=== PATIENT | male | born 1970 | race Caucasian/White ===

== ENCOUNTER 2018-08-20 12:20 | Outpatient (CLI) | payer OTHER ==
[~2018-08-20] VITALS: Ht 172.7 cm; Wt 77.6 kg
[2018-08-20 12:30] VITALS: BP 122/85
[2018-08-20] MEDS ORDERED: HYDR-3820 PO (12:33)
[2018-08-20] MEDS ORDERED: DICL75TA2 PO (12:33)
[2018-08-20 13:17] LABS: BASOPHILS % (AUTO) 0 % (0-10); EOSINOPHILS # (AUTO) 0.2 10^3/uL (0.0-0.3); EOSINOPHILS % (AUTO) 4 % (0-10); HEMATOCRIT 47 % (40-54); HEMOGLOBIN 16.7 G/DL (13.3-17.7); LYMPHOCYTES # (AUTO) 1.4 X 10^3 (1.0-4.0); LYMPHOCYTES % (AUTO) 24 % (12-44); MEAN CORPUSCULAR HEMOGLOBIN 32 PG (25-34); MEAN CORPUSCULAR HGB CONC 35 G/DL (32-36); MEAN CORPUSCULAR VOLUME 90 FL (80-99); MEAN PLATELET VOLUME 9.4 FL (7.4-10.4); MONOCYTES # (AUTO) 0.4 X 10^3 (0.0-1.0); MONOCYTES % (AUTO) 7 % (0-12); NEUTROPHILS # (AUTO) 3.9 X 10^3 (1.8-7.8); NEUTROPHILS % (AUTO) 65 % (42-75); PLATELET COUNT 287 10^3/uL (130-400); RED BLOOD COUNT 5.24 10^6/uL (4.35-5.85); RED CELL DISTRIBUTION WIDTH 12.7 % (10.0-14.5)
[2018-08-20 13:39] LABS: AMPHETAMINE SCREEN, URINE POSITIVE (NEGATIVE); BARBITURATE SCREEN URINE NEGATIVE (NEGATIVE); BENZODIAZEPINES SCREEN URINE NEGATIVE (NEGATIVE); CANNABINOID SCREEN, URINE NEGATIVE (NEGATIVE); COCAINE SCREEN URINE NEGATIVE (NEGATIVE); METHADONE STAT NEGATIVE (NEGATIVE); METHAMPHETAMINE SCREEN URINE S POSITIVE (NEGATIVE); OPIATE SCREEN URINE POSITIVE (NEGATIVE); OXYCODONE STAT NEGATIVE (NEGATIVE); PROPOXYPHENE STAT NEGATIVE (NEGATIVE); TRICYCLIC ANTIDEPRESSANTS SCRE NEGATIVE (NEGATIVE)
== END 2018-08-20 13:00 | disposition home or self-care (01) ==
LOC: PREOP 12:20
PROVIDERS: ATTEND Orthopaedic Surgery Orthopaedic Surgery of the Spine
DX: Z01.812 Encounter for preprocedural laboratory examination (principal); Z11.2 Encounter for screening for other bacterial diseases; M47.817 Spondylosis without myelopathy or radiculopathy, lumbosacral region; I10 Essential (primary) hypertension; Z22.322 Carrier or suspected carrier of Methicillin resistant Staphylococcus aureus
CPT/HCPCS: 36415; 80306; 85025; 87081

== ENCOUNTER 2018-09-17 09:19 | Outpatient (CLI) | payer OTHER ==
[~2018-09-17] VITALS: Ht 172.7 cm; Wt 77.6 kg
[~2018-09-17 09:19] MED LIST: DICL75TA2 PO; HYDR-3820 PO; LISI10TA2 PO
== END 2018-09-17 09:48 | disposition home or self-care (01) ==
LOC: PREOP 09:19
PROVIDERS: ATTEND Orthopaedic Surgery Orthopaedic Surgery of the Spine
DX: Z01.818 Encounter for other preprocedural examination (principal)

== ENCOUNTER 2018-09-21 09:48 | Inpatient (IN) | payer OTHER ==
[~2018-09-21] VITALS: Ht 172.7 cm; Wt 77.6 kg
[2018-09-21] MEDS: MULTIVIT W/MINERALS TAB (THERAGRAN M) PO SCH (07:00)
[2018-09-21] MEDS ORDERED: ceFAZolin 2 GM IV Premixed 50 ML IV ONE (10:15)
[2018-09-21 10:25] LABS: AMPHETAMINE SCREEN, URINE NEGATIVE (NEGATIVE); BARBITURATE SCREEN URINE NEGATIVE (NEGATIVE); BENZODIAZEPINES SCREEN URINE NEGATIVE (NEGATIVE); CANNABINOID SCREEN, URINE NEGATIVE (NEGATIVE); COCAINE SCREEN URINE NEGATIVE (NEGATIVE); METHADONE STAT NEGATIVE (NEGATIVE); METHAMPHETAMINE SCREEN URINE S NEGATIVE (NEGATIVE); OPIATE SCREEN URINE POSITIVE (NEGATIVE); OXYCODONE STAT NEGATIVE (NEGATIVE); PROPOXYPHENE STAT NEGATIVE (NEGATIVE); TRICYCLIC ANTIDEPRESSANTS SCRE NEGATIVE (NEGATIVE)
[2018-09-21] MEDS: LACTATED RINGERS 1,000 ML IV PRN ×2 (10:45→12:45)
[2018-09-21 10:47] LABS: BASOPHILS % (AUTO) 0 % (0-10); EOSINOPHILS # (AUTO) 0.3 10^3/uL (0.0-0.3); EOSINOPHILS % (AUTO) 4 % (0-10); HEMATOCRIT 45 % (40-54); HEMOGLOBIN 15.2 G/DL (13.3-17.7); LYMPHOCYTES # (AUTO) 1.7 X 10^3 (1.0-4.0); LYMPHOCYTES % (AUTO) 24 % (12-44); MEAN CORPUSCULAR HEMOGLOBIN 31 PG (25-34); MEAN CORPUSCULAR HGB CONC 34 G/DL (32-36); MEAN CORPUSCULAR VOLUME 92 FL (80-99); MEAN PLATELET VOLUME 9.2 FL (7.4-10.4); MONOCYTES # (AUTO) 0.7 X 10^3 (0.0-1.0); MONOCYTES % (AUTO) 10 % (0-12); NEUTROPHILS # (AUTO) 4.4 X 10^3 (1.8-7.8); NEUTROPHILS % (AUTO) 63 % (42-75); PLATELET COUNT 204 10^3/uL (130-400); RED BLOOD COUNT 4.89 10^6/uL (4.35-5.85); RED CELL DISTRIBUTION WIDTH 12.6 % (10.0-14.5); WHITE BLOOD COUNT 7.1 10^3/uL (4.3-11.0)
[2018-09-21] MEDS ORDERED: VANCOMYCIN 1000 MG/VIAL ONE (11:06)
[2018-09-21] MEDS ORDERED: BUPIVACAINE 0.25% 30 ML (SENSORCAINE) VIAL ONE (11:06)
[2018-09-21] MEDS ORDERED: GENTAMICIN 40 MG/ML 2 ML INJ SDV ONE (11:06)
[2018-09-21] MEDS ORDERED: LANS15CA PO (11:21)
[2018-09-21] MEDS ORDERED: MIDAZOLAM 2 MG/2 ML (VERSED) VIAL ONE (11:28)
[2018-09-21] MEDS ORDERED: fentaNYL INJECTION 250 MCG/5 ML AMP ONE (11:28)
[2018-09-21] MEDS ORDERED: proPOfol 200 MG/20 ML (DIPRIVAN) VIAL IV ONE (11:28)
[2018-09-21] MEDS ORDERED: SEVOFLURANE (ULTANE) 15 ML INHAL SOLN ONE ×8 (11:28→14:41)
[2018-09-21] MEDS ORDERED: LIDOCAINE PF 2% 5 ML (XYLOCAINE) VIAL ONE (11:28)
[2018-09-21] MEDS ORDERED: FAMOTIDINE 20MG/2ML IV (PEPCID) IVP ONE (11:30)
[2018-09-21] MEDS ORDERED: fentaNYL INJECTION 100 MCG/2 ML AMP IVP ONE ×2 (11:30→15:15)
[2018-09-21] MEDS ORDERED: fentaNYL INJECTION 100 MCG/2 ML AMP ONE (11:57)
[2018-09-21] MEDS ORDERED: TRANEXAMIC ACID 100 MG/ML 10 ML INJECTION IV ONE (14:40)
[2018-09-21] MEDS ORDERED: DEXAMETHASONE 10 MG/ML (DECADRON) 1 ML VIAL ONE (14:41)
[2018-09-21] MEDS ORDERED: DEXMEDETOMIDINE 200 MCG/2 ML (PRECEDEX) VIAL IV ONE (14:41)
[2018-09-21] MEDS ORDERED: LACTATED RINGERS 1,000 ML IV ONE (14:41)
[2018-09-21] MEDS ORDERED: ONDANSETRON 4 MG/2 ML (SDV) Z0FRAN ONE (14:42)
[2018-09-21] MEDS ORDERED: morphine INJ 10 MG/ML 1ML (SYR OR VIAL) IV PRN ×2 (15:06→19:43)
[2018-09-21] MEDS ORDERED: PROMETHAZINE 25 MG (PHENERGAN) TAB PO PRN (15:06)
[2018-09-21] MEDS ORDERED: BISACODYL 10 MG SUPP (DULCOLAX) PR PRN (15:06)
[2018-09-21] MEDS ORDERED: ONDANSETRON 4 MG/2 ML (SDV) Z0FRAN IV PRN (15:06)
[2018-09-21] MEDS ORDERED: HYDROcodone/APAP 10 MG/325 MG (LORTAB) TAB PO PRN (15:06)
[2018-09-21] MEDS ORDERED: MEPERIDINE (DEMEROL) INJ 50 MG/ML IVP ONE (15:15)
[2018-09-21] MEDS ORDERED: morphine INJ 10 MG/ML 1ML (SYR OR VIAL) IVP ONE (15:15)
[2018-09-21] MEDS ORDERED: ONDANSETRON 4 MG/2 ML (SDV) Z0FRAN IVP PRN (15:15)
--- NOTE | 2018-09-21 19:13 | Diagnostic Imaging Report ---
Indication: Fluoroscopy during lumbar spine surgery. Fluoroscopy was provided in the OR during lumbar spine surgery. 29 seconds of fluoroscopy was utilized. There are postop changes of posterior instrumented fusion at L5-S1. There is also anterior lumbar interbody fusion at L5-S1. Alignment is anatomic. Impression: Fluoroscopy during lumbar spine surgery. Dictated by: Dictated on workstation # [id number]
[2018-09-21] MEDS: POLYETHYLENE GLYCOL 17 GM (MIRALAX) PACK PO SCH (20:30)
[2018-09-21] MEDS: FAMOTIDINE 20 MG (PEPCID) TABLET PO SCH (20:30)
[2018-09-21] MEDS: SENNOSIDES 8.6 MG (SENOKOT) TAB PO SCH (20:30)
[2018-09-21] MEDS: DOCUSATE SODIUM 100 MG (COLACE) CAP PO SCH (20:30)
--- NOTE | 2018-09-21 22:30 | OPERATIVE REPORT ---
DATE OF SERVICE: 09/21/2018 PREOPERATIVE DIAGNOSES: Lumbar spondylolisthesis, lumbar stenosis and lumbar radiculopathy. POSTOPERATIVE DIAGNOSES: Lumbar spondylolisthesis, lumbar stenosis, and lumbar radiculopathy. PROCEDURES PERFORMED: 1. L5-S1 anterior lumbar interbody fusion. 2. L5-S1 interbody cage instrumentation. 3. L5-S1 anterior instrumentation. 4. Allograft for spine surgery, morselized. 5. L5-S1 posterior spinal fusion. 6. L5-S1 posterior nonsegmental pedicle screw instrumentation. 7. L5 Hatch laminectomy with removal of bilateral abnormal pars. 8. Autograft for spine surgery with local. DATE AND TIME OF SURGERY: Please see anesthesia record. IMPLANTS USED: Medtronic Voyager Solera percutaneous pedicle screw instrumentation, Medtronic pyramid plate, Medtronic Infuse and Orthoblend bone graft, 4Web ALIF cage. SURGEON: Rachelle Klein MD. DISTRIBUTION TECHNICIAN: ANANDA Martell. ROLE OF ESCALATOR ATTENDANT: Aid in retraction of the procedure, aid in implantation, instrumentation and wound closure. ANESTHESIA: General endotracheal. ESTIMATED BLOOD LOSS: Minimal. INTRAVENOUS FLUIDS: Please see anesthesia record. ANTIBIOTICS: Ancef. COMPLICATIONS: None. INDICATIONS FOR PROCEDURE: The patient is a 47-year male with severe back and lower extremity pain, high grade stenosis, lytic spondylolisthesis, failed conservative therapy, desires operative treatment. NEUROMONITORING: Standard intraoperative neuromonitoring carried out by means of real time continuous high quality bidirectional mode, audio and visual communication to both the information technology technician and surgeon was carried out by Dr. Gray to assess SSEPs , EMGs and TOFs were carried out continuously throughout the procedure stable. DESCRIPTION OF PROCEDURE: The patient was taken to the preoperative area. He was brought back to the operative suite after adequate induction of general anesthesia, preoperative antibiotics, placed supine on the OR table. Abdomen was prepped and draped. Left-sided retroperitoneal exposure of the 5-1 level was carried out without difficulty. Once appropriate level was confirmed, a vessel was retracted, anterior diskectomy was carried out. Disk decompression all the way back to the posterior annulus and once adequate disk prep was performed with good reduction of the spondylosis, Trial spacer was utilized and a 6-degree 12 tall medium footprint, 4Web cage filled, allograft bone was impacted into position with great fit achieved. Infuse bone graft was packed around the cage for further grafting purposes and then a 37 mm pyramid plate was affixed to the spine. Locking mechanism was deployed. Wound was copiously irrigated. Hemostasis assured. Final imaging was obtained. Wound was closed in layers. The patient was turned prone on the Shine table, careful padding to all extremities, sterilely prepped and draped posterior thoracic spine. Fluoroscopy was brought in a paramedian, once the incision was made and through it, guidewires were placed into the left-sided L5 and S1 pedicles. Then, a central midline incision was made and a small midline dissection down to the L5 lamina, which was confirmed on imaging and then a complete L5 Hatch laminectomy including removal of bilateral abnormal pars was performed. Bipolar cautery was used to aid hemostasis. Decompression was further assured. Once the Hatch fragment was removed and once sufficient decompression hemostasis was achieved, wound was irrigated, bone was morcellized and then through the same lateral incision where the guidewires were placed and Voyager screws were placed, wendy was applied. Final tightening was performed. Construct was checked and then under direct visualization, the transverse process and sacral ala were visualized, decorticated and packed with Infuse autograft bone. Wounds were irrigated, closed in layers. The patient was transferred to recovery room in stable condition, having tolerated the procedure well. Job ID: [id number] DocumentID: [id number] Dictated Date: 09/21/2018 14:45:57 Utility Locator Date: 09/21/2018 19:44:07 Dictated By: RACHELLE KLEIN MD [facility]
[2018-09-22] MEDS: ceFAZolin 2 GM/50 ML PRE-MIXED IVPB IV SCH ×3 (03:00→11:30)
[2018-09-22 06:31] LABS: HEMOGLOBIN 14.5 G/DL (13.3-17.7); MEAN PLATELET VOLUME 9.4 FL (7.4-10.4); RED BLOOD COUNT 4.53 10^6/uL (4.35-5.85); RED CELL DISTRIBUTION WIDTH 12.6 % (10.0-14.5); WHITE BLOOD COUNT 18.7 10^3/uL (4.3-11.0)
[2018-09-22 06:52] LABS: ALANINE AMINOTRANSFERASE 20 U/L (0-55); ALKALINE PHOSPHATASE 74 U/L (40-136); BILIRUBIN,TOTAL 1.1 MG/DL (0.1-1.0); BUN/CREATININE RATIO 13; CALCIUM 9.1 MG/DL (8.5-10.1); CARBON DIOXIDE 20 MMOL/L (21-32); CHLORIDE 105 MMOL/L (98-107); CREATININE SERUM 0.94 MG/DL (0.60-1.30); GFR ESTIMATED > 60; GLUCOSE 204 MG/DL (70-105); POTASSIUM 4.4 MMOL/L (3.6-5.0); SODIUM 135 MMOL/L (135-145); TOTAL PROTEIN 6.9 GM/DL (6.4-8.2)
[2018-09-22 08:00] VITALS: BP 132/98
[2018-09-22] MEDS: DOCUSATE SODIUM 100 MG (COLACE) CAP PO SCH (09:00)
[2018-09-22] MEDS: SENNOSIDES 8.6 MG (SENOKOT) TAB PO SCH ×2 (09:00→20:23)
--- NOTE | 2018-09-22 10:27 | Consultation-Hospitalist ---
HPI History of Present Illness: HPI/Chief Complaint CC: Hypotension HPI: This is a 47yoWM who underwent an uncomplicated spine surgery by Dr Klein who has experienced hypotension with symptoms this morning requiring IVF bolus. Currently he feels much better. He had the catheter removed 1 hour ago and has not urinated yet. Pt reports that his pain is under control except for the muscle spasm in his lower back. I reviewed all of his home meds and labs. WBC count is elevated but no significant source has been identified. Source: patient, RN/MD Exam Limitations: no limitations Date Seen 09/22/18 Attending Physician Blake Klein MD PCP No,Local Physician Referring Physician Date of Admission Sep 21, 2018 at 09:48 Home Medications & Allergies Home Medications Reviewed patient Home Medication Reconciliation performed by pharmacy medication reconciliations systems technician and/or nursing. Patients Allergies have been reviewed. Allergies Allergies Coded Allergies tramadol (Verified Allergy, Unknown, ITCHING RASH, 08/20/18) Past Vgmpyst-Zwsrzb-Ajczsw Hx Past Med/Social Hx: Reviewed Nursing Past Med/Soc Hx, Reviewed and Corrections made Patient Social History Employed/Student: employed ([employer] in [place]) Alcohol Use: Occasionally Uses Recreational Drug Use: Yes (USED METH "A COUPLE OF WEEKS AGO") Smoking Status: Current Everyday Smoker Type Used: Cigarettes Physical Abuse Screen: No Sexual Abuse: No Recent Foreign Travel: No Contact w/other who traveled: No Recent Hopitalizations: No Recent Infectious Disease Expo: No Seasonal Allergies Seasonal Allergies: No Past Medical History Surgeries: Orthopedic Gastrointestinal: Gastroesophageal Reflux Musculoskeletal: Arthritis, Chronic Back Pain History of Blood Disorders: No Family History Diabetes mellitus 19 MOTHER G8 BROTHER G8 SISTER Gastroenteritis Hypertension 19 FATHER 19 MOTHER G8 BROTHER G8 SISTER Kidney disease 19 MOTHER Myocardial infarction 19 FATHER Hypertension Review of Systems Constitutional: see HPI, weakness EENTM: no symptoms reported Respiratory: no symptoms reported Cardiovascular: no symptoms reported Gastrointestinal: no symptoms reported Genitourinary: no symptoms reported Musculoskeletal: back pain Skin: no symptoms reported Psychiatric/Neurological: No Symptoms Reported All Other Systems Reviewed Negative Unless Noted: Yes Physical Exam Physical Exam Vital Signs Vital Signs - First Documented 09/22/18 08:00 Temp 97.4 Pulse 108 Resp 20 B/P (MAP) 132/98 (109) Pulse Ox 95 O2 Delivery Room Air Capillary Refill : Height, Weight, BMI Height: 5'8.00" Weight: 171lbs. 0.0oz. 77.224650sr; 26.0 BMI Method: General Appearance: No Apparent Distress, WD/WN, Chronically ill, Other ( talkative) Eyes: Bilateral Eye Normal Inspection, Bilateral Eye PERRL HEENT: PERRL/EOMI, Normal ENT Inspection, Pharynx Normal Neck: Full Range of Motion, Normal Inspection, Non Tender, Supple, Carotid Bruit Respiratory: Chest Non Tender, Lungs Clear, Normal Breath Sounds, No Accessory Muscle Use, No Respiratory Distress Cardiovascular: Regular Rate, Rhythm, No Edema, No Gallop, No JVD, No Murmur, Normal Peripheral Pulses Gastrointestinal: Normal Bowel Sounds, No Organomegaly, No Pulsatile Mass, Non Tender, Soft Back: Decreased Range of Motion, Muscle Spasm, Vertebral Tenderness Extremity: Normal Capillary Refill, Normal Inspection, Normal Range of Motion, Non Tender, No Calf Tenderness, No Pedal Edema Neurologic/Psychiatric: Alert, Oriented x3, No Motor/Sensory Deficits, Normal Mood/Affect Skin: Normal Color, Warm/Dry Lymphatic: No Adenopathy Results Results/Procedures Labs Laboratory Tests 09/21/18 10:35 Patient resulted labs reviewed. Assessment/Plan Assessment and Plan Assess & Plan/Chief Complaint Assessment: Mild hypotension Uncomplicated lumbar spine surgery POD # 1 Smoker Plan: Monitor BP Maintain IVF Pain control Monitor for urinary retention IS Diagnosis/Problems Diagnosis/Problems (1) Hypotension Status: Acute Qualifiers: Hypotension type: orthostatic hypotension Qualified Codes: I95.1 - Orthostatic hypotension (2) Near syncope Status: Acute (3) Hx of lumbosacral spine surgery Status: Acute (4) Smoker Status: Chronic BARAK FARAH DO Sep 22, 2018 10:27
[2018-09-22] MEDS ORDERED: FLU QUADRIvalent (5+ YOA) 2018-2019 (AFLURIA) 0.5 ML IM ONE (10:45)
[2018-09-22] MEDS: oxyCODONE/APAP 10/325MG (PERCOCET 10) TABLET PO PRN ×3 (11:30→20:25)
[2018-09-22 12:00] VITALS: BP 118/78
[2018-09-22] MEDS ORDERED: ACETAMINOPHEN 325 MG TABLET PO PRN (12:30)
[2018-09-22] MEDS: BACLOFEN 10 MG (LIORESAL) TAB PO PRN ×2 (12:35→23:44)
[2018-09-22] MEDS ORDERED: CATHETER FLUSH 10 ML SYR IV PRN (12:45)
[2018-09-22 16:00] VITALS: BP 133/76
[2018-09-22] MEDS: NS IV 1000 ML 1,000 ML IV SCH ×3 (16:12→21:13)
[2018-09-22] MEDS: morphine INJ 4 MG/ML 1 ML (VIAL/SYRINGE) IVP PRN ×2 (18:21→23:44)
[2018-09-22] MEDS: FAMOTIDINE 20 MG (PEPCID) TABLET PO SCH ×2 (19:27→20:23)
[2018-09-22 20:18] VITALS: BP 138/82
[2018-09-22] MEDS: POLYETHYLENE GLYCOL 17 GM (MIRALAX) PACK PO SCH (20:23)
[2018-09-23 00:30] VITALS: BP 131/88
[2018-09-23] MEDS: oxyCODONE/APAP 10/325MG (PERCOCET 10) TABLET PO PRN ×5 (03:13→23:10)
[2018-09-23] MEDS: NS IV 1000 ML 1,000 ML IV SCH ×3 (03:14→23:11)
[2018-09-23 04:00] VITALS: BP 155/99
[2018-09-23 04:29] LABS: BASOPHILS % (AUTO) 0 % (0-10); EOSINOPHILS % (AUTO) 0 % (0-10); HEMATOCRIT 40 % (40-54); HEMOGLOBIN 13.6 G/DL (13.3-17.7); LYMPHOCYTES # (AUTO) 1.4 X 10^3 (1.0-4.0); LYMPHOCYTES % (AUTO) 11 % (12-44); MEAN CORPUSCULAR HEMOGLOBIN 31 PG (25-34); MEAN CORPUSCULAR HGB CONC 34 G/DL (32-36); MEAN CORPUSCULAR VOLUME 92 FL (80-99); MEAN PLATELET VOLUME 9.7 FL (7.4-10.4); MONOCYTES # (AUTO) 1.2 X 10^3 (0.0-1.0); MONOCYTES % (AUTO) 9 % (0-12); NEUTROPHILS # (AUTO) 10.9 X 10^3 (1.8-7.8); NEUTROPHILS % (AUTO) 80 % (42-75); PLATELET COUNT 187 10^3/uL (130-400); RED BLOOD COUNT 4.35 10^6/uL (4.35-5.85); RED CELL DISTRIBUTION WIDTH 12.4 % (10.0-14.5); WHITE BLOOD COUNT 13.6 10^3/uL (4.3-11.0)
[2018-09-23 04:49] LABS: ALANINE AMINOTRANSFERASE 21 U/L (0-55); ALBUMIN 3.7 GM/DL (3.2-4.5); ALKALINE PHOSPHATASE 81 U/L (40-136); BILIRUBIN,TOTAL 1.5 MG/DL (0.1-1.0); BUN/CREATININE RATIO 10; CALCIUM 8.8 MG/DL (8.5-10.1); CARBON DIOXIDE 21 MMOL/L (21-32); CHLORIDE 104 MMOL/L (98-107); CREATININE SERUM 0.79 MG/DL (0.60-1.30); GFR ESTIMATED > 60; GLUCOSE 177 MG/DL (70-105); POTASSIUM 3.8 MMOL/L (3.6-5.0); SODIUM 135 MMOL/L (135-145); TOTAL PROTEIN 6.5 GM/DL (6.4-8.2)
[2018-09-23] MEDS: MULTIVIT W/MINERALS TAB (THERAGRAN M) PO SCH (06:18)
[2018-09-23 08:00] VITALS: BP 144/91
--- NOTE | 2018-09-23 08:03 | Progress Note (SOAP) ---
Subjective Time Seen by a Provider: 08:04 Subjective/Events-last exam Pt states that he is still hurting quite a bit. He is having increased numbness in his left leg. Objective Exam Vital Signs Date Time Temp Pulse Resp B/P (MAP) Pulse Ox O2 Delivery O2 Flow Rate FiO2 09/23/18 06:46 99.8 09/23/18 04:00 101.7 119 24 155/99 (117) 96 Room Air 09/23/18 00:30 100.4 121 18 131/88 (102) 95 Room Air 09/22/18 20:18 100.0 121 16 138/82 (100) 97 Room Air 09/22/18 16:00 98.8 118 16 133/76 (95) 97 Room Air 09/22/18 12:00 99.0 113 20 118/78 (91) 97 Room Air I & O 09/23/18 07:00 Intake Total 4090 ml Output Total 3525 ml Balance 565 ml Capillary Refill : General Appearance: No Apparent Distress, WD/WN Respiratory: No Accessory Muscle Use Neurologic/Psychiatric: Alert, Sensory Deficit Skin: Normal Color Results Lab Laboratory Tests 09/23/18 04:10: White Blood Count 13.6H, Red Blood Count 4.35, Hemoglobin 13.6, Hematocrit 40, Mean Corpuscular Volume 92, Mean Corpuscular Hemoglobin 31, Mean Corpuscular Hemoglobin Concent 34, Red Cell Distribution Width 12.4, Platelet Count 187, Mean Platelet Volume 9.7, Neutrophils (%) (Auto) 80H, Lymphocytes (%) (Auto) 11L , Monocytes (%) (Auto) 9, Eosinophils (%) (Auto) 0, Basophils (%) (Auto) 0, Neutrophils # (Auto) 10.9H, Lymphocytes # (Auto) 1.4, Monocytes # (Auto) 1.2H, Eosinophils # (Auto) 0.0, Basophils # (Auto) 0.0, Sodium Level 135, Potassium Level 3.8, Chloride Level 104, Carbon Dioxide Level 21, Anion Gap 10, Blood Urea Nitrogen 8, Creatinine 0.79, Estimat Glomerular Filtration Rate > 60, BUN/ Creatinine Ratio 10, Glucose Level 177H, Calcium Level 8.8, Corrected Calcium 9.0, Total Bilirubin 1.5H, Aspartate Amino Transf (AST/SGOT) 26, Alanine Aminotransferase (ALT/SGPT) 21, Alkaline Phosphatase 81, Total Protein 6.5, Albumin 3.7 Microbiology 09/21/18 MRSA Screen - Final, Complete MRSA not isolated Assessment/Plan Assessment/Plan Assess & Plan/Chief Complaint S/P L5-S1 AP fusion Dexamethasone 8 mg IV X1 Continue PT and pain control Home tomorrow JAY JAY FITCH Sep 23, 2018 08:03
[2018-09-23] MEDS ORDERED: DEXAMETHASONE 4 MG/ML SDV (DECADRON) IV NR (08:15)
[2018-09-23] MEDS: DOCUSATE SODIUM 100 MG (COLACE) CAP PO SCH (08:32)
[2018-09-23] MEDS: FAMOTIDINE 20 MG (PEPCID) TABLET PO SCH ×2 (08:32→20:02)
[2018-09-23] MEDS: SENNOSIDES 8.6 MG (SENOKOT) TAB PO SCH ×2 (08:32→20:02)
[2018-09-23] MEDS: BACLOFEN 10 MG (LIORESAL) TAB PO PRN ×2 (10:37→20:02)
--- NOTE | 2018-09-23 10:42 | Progress Note-Hospitalist ---
Subjective HPI/CC On Admission Date Seen by Provider: Sep 23, 2018 Time Seen by Provider: 09:50 CC: Hypotension HPI: This is a 47yoWM who underwent an uncomplicated spine surgery by Dr Klein who has experienced hypotension with symptoms this morning requiring IVF bolus. Currently he feels much better. He had the catheter removed 1 hour ago and has not urinated yet. Pt reports that his pain is under control except for the muscle spasm in his lower back. I reviewed all of his home meds and labs. WBC count is elevated but no significant source has been identified. Subjective/Events-last exam Patient doing about the same Back pain is still an issue Checked meds and labs No BM yet Urination slowed so will start meds Fever noted last night 101 using IS and lungs are clear Review of Systems General: Night Sweats Gastrointestinal: Constipation Genitourinary: Frequency Objective Exam Vital Signs Vital Signs Date Time Temp Pulse Resp B/P (MAP) Pulse Ox O2 Delivery O2 Flow Rate FiO2 09/23/18 08:00 100.6 105 22 144/91 (108) 98 Room Air Capillary Refill : General Appearance: No Apparent Distress, WD/WN Respiratory: Chest Non Tender, Lungs Clear, Normal Breath Sounds, No Accessory Muscle Use, No Respiratory Distress Cardiovascular: Regular Rate, Rhythm, No Edema, No Gallop, No JVD, No Murmur, Normal Peripheral Pulses Back: Decreased Range of Motion Neurologic/Psychiatric: Alert, Oriented x3, No Motor/Sensory Deficits, Normal Mood/Affect Results/Procedures Lab Laboratory Tests 09/23/18 04:10 Patient resulted labs reviewed. Assessment/Plan Assessment and Plan Assess & Plan/Chief Complaint Assessment: Mild hypotension-resolved Uncomplicated lumbar spine surgery POD # 2 Smoker Plan: Monitor BP Pain control Urinary retention meds IS BM treatment Diagnosis/Problems Diagnosis/Problems (1) Hypotension Status: Resolved Qualifiers: Hypotension type: orthostatic hypotension Qualified Codes: I95.1 - Orthostatic hypotension (2) Near syncope Status: Resolved (3) Hx of lumbosacral spine surgery Status: Acute (4) Smoker Status: Chronic (5) Constipation Status: Acute Qualifiers: Constipation type: drug induced constipation Qualified Codes: K59.03 - Drug induced constipation (6) Urinary retention Status: Acute BARAK FARAH DO Sep 23, 2018 10:42
[2018-09-23] MEDS ORDERED: PHENAZOPYRIDINE 100 MG (PYRIDIUM) TABLET PO NR (10:45)
[2018-09-23] MEDS ORDERED: BETHANECHOL 25 MG (URECHOLINE) TAB PO NR (10:45)
[2018-09-23] MEDS ORDERED: BISACODYL 10 MG SUPP (DULCOLAX) PR NR (10:45)
[2018-09-23] MEDS: BISACODYL 5 MG (DULCOLAX) TABLET PO PRN ×2 (11:49→20:04)
[2018-09-23 12:00] VITALS: BP 120/79
[2018-09-23] MEDS: TAMSULOSIN 0.4 MG (FLOMAX) CAP PO SCH ×2 (12:10→13:21)
[2018-09-23] MEDS: BETHANECHOL 25 MG (URECHOLINE) TAB PO SCH ×3 (12:11→20:02)
[2018-09-23] MEDS: PHENAZOPYRIDINE 100 MG (PYRIDIUM) TABLET PO SCH ×2 (13:04→17:24)
[2018-09-23 16:10] VITALS: BP 136/91
[2018-09-23 19:25] VITALS: BP 121/79
[2018-09-23] MEDS: POLYETHYLENE GLYCOL 17 GM (MIRALAX) PACK PO SCH (20:02)
[2018-09-24 00:05] VITALS: BP 132/80
[2018-09-24] MEDS: morphine INJ 4 MG/ML 1 ML (VIAL/SYRINGE) IVP PRN (00:53)
[2018-09-24 04:06] VITALS: BP 119/80
[2018-09-24 05:06] LABS: BASOPHILS % (AUTO) 0 % (0-10); EOSINOPHILS % (AUTO) 0 % (0-10); HEMATOCRIT 38 % (40-54); HEMOGLOBIN 13.3 G/DL (13.3-17.7); LYMPHOCYTES # (AUTO) 1.8 X 10^3 (1.0-4.0); LYMPHOCYTES % (AUTO) 13 % (12-44); MEAN CORPUSCULAR HEMOGLOBIN 32 PG (25-34); MEAN CORPUSCULAR HGB CONC 35 G/DL (32-36); MEAN CORPUSCULAR VOLUME 92 FL (80-99); MEAN PLATELET VOLUME 9.6 FL (7.4-10.4); MONOCYTES # (AUTO) 1.2 X 10^3 (0.0-1.0); MONOCYTES % (AUTO) 9 % (0-12); NEUTROPHILS % (AUTO) 79 % (42-75); PLATELET COUNT 209 10^3/uL (130-400); RED BLOOD COUNT 4.18 10^6/uL (4.35-5.85); RED CELL DISTRIBUTION WIDTH 12.6 % (10.0-14.5)
[2018-09-24 05:25] LABS: ALANINE AMINOTRANSFERASE 24 U/L (0-55); ALBUMIN 3.6 GM/DL (3.2-4.5); ALKALINE PHOSPHATASE 84 U/L (40-136); BILIRUBIN,TOTAL 1.1 MG/DL (0.1-1.0); BUN/CREATININE RATIO 12; CALCIUM 9.5 MG/DL (8.5-10.1); CARBON DIOXIDE 22 MMOL/L (21-32); CHLORIDE 104 MMOL/L (98-107); CREATININE SERUM 0.76 MG/DL (0.60-1.30); GFR ESTIMATED > 60; GLUCOSE 190 MG/DL (70-105); POTASSIUM 3.9 MMOL/L (3.6-5.0); SODIUM 136 MMOL/L (135-145); TOTAL PROTEIN 6.7 GM/DL (6.4-8.2)
[2018-09-24] MEDS: MULTIVIT W/MINERALS TAB (THERAGRAN M) PO SCH (06:17)
[2018-09-24] MEDS: oxyCODONE/APAP 10/325MG (PERCOCET 10) TABLET PO PRN ×2 (06:18→11:21)
[2018-09-24] MEDS: BETHANECHOL 25 MG (URECHOLINE) TAB PO SCH ×2 (06:18→11:21)
[2018-09-24] MEDS ORDERED: HYDR-3820 PO (07:22)
--- NOTE | 2018-09-24 07:25 | Discharge Inst-Surgical ---
Discharge Inst-Surgical Depart Medication/Instructions New, Converted or Re-Newed RX: RX Given to Pt/Family Activity Activity as Tolerated: No Walking Assistive Device: Walker Activity Instructions: Avoid Pulling & Pushing Driving Instructions: No Driving for 2 Weeks Incentive Spirometry: Every 2 Hours While Awake Avoid ALL Tobacco Products: Smoking of Any Kind Diet Discharge Diet: No Restrictions Symptoms to Report to Physicia: Extremity Discoloration, Numbness/Tingling, Swelling Increased, Pain Increased, Constipation(Persistant), Fever Over 101 Degrees F, Pain/Pressure in Chest If Any Problems/Questions/Issu: Contact Your Physician Skin/Wound Care Infection Signs and Symptoms: Increased Redness, Foul Odor of Wound, Temperature Above 101 F Bathing Instructions: Shower Operative Area Clean and Dry: Keep Incision Clean/Dry Steristrips: Will Fall Off in 1-2 Wks Ice Pack: Ice On and Off Site JAY JAY FITCH Sep 24, 2018 07:25
[2018-09-24 08:00] VITALS: BP 117/75
[2018-09-24] MEDS: SENNOSIDES 8.6 MG (SENOKOT) TAB PO SCH (11:21)
[2018-09-24] MEDS: PHENAZOPYRIDINE 100 MG (PYRIDIUM) TABLET PO SCH (11:21)
--- NOTE | 2018-09-24 11:21 | Progress Note-Hospitalist ---
Subjective HPI/CC On Admission Date Seen by Provider: Sep 24, 2018 Time Seen by Provider: 10:00 CC: Hypotension HPI: This is a 47yoWM who underwent an uncomplicated spine surgery by Dr Klein who has experienced hypotension with symptoms this morning requiring IVF bolus. Currently he feels much better. He had the catheter removed 1 hour ago and has not urinated yet. Pt reports that his pain is under control except for the muscle spasm in his lower back. I reviewed all of his home meds and labs. WBC count is elevated but no significant source has been identified. Subjective/Events-last exam Patient doing very well Had a headache last night that required morphine Patient will be discharged today Urinating well No BM yet so we'll work on that at home Review of Systems Gastrointestinal: Constipation Objective Exam Vital Signs Vital Signs Date Time Temp Pulse Resp B/P (MAP) Pulse Ox O2 Delivery O2 Flow Rate FiO2 09/24/18 08:00 97.3 97 20 117/75 (89) 96 Room Air Capillary Refill : General Appearance: No Apparent Distress, WD/WN, Chronically ill Respiratory: Chest Non Tender, Lungs Clear, Normal Breath Sounds, No Accessory Muscle Use, No Respiratory Distress Cardiovascular: Regular Rate, Rhythm, No Edema, No Gallop, No JVD, No Murmur, Normal Peripheral Pulses Back: Decreased Range of Motion Neurologic/Psychiatric: Alert, Oriented x3, No Motor/Sensory Deficits, Normal Mood/Affect Results/Procedures Lab Laboratory Tests 09/24/18 04:58 Patient resulted labs reviewed. Assessment/Plan Assessment and Plan Assess & Plan/Chief Complaint Assessment: Mild hypotension-resolved Uncomplicated lumbar spine surgery POD # 3 Smoker Plan: Discharge home Diagnosis/Problems Diagnosis/Problems (1) Hypotension Status: Resolved Qualifiers: Hypotension type: orthostatic hypotension Qualified Codes: I95.1 - Orthostatic hypotension (2) Near syncope Status: Resolved (3) Hx of lumbosacral spine surgery Status: Acute (4) Smoker Status: Chronic (5) Constipation Status: Acute Qualifiers: Constipation type: drug induced constipation Qualified Codes: K59.03 - Drug induced constipation (6) Urinary retention Status: Acute BARAK FARAH DO Sep 24, 2018 11:21
[2018-09-24] MEDS: BISACODYL 5 MG (DULCOLAX) TABLET PO PRN (11:22)
[2018-09-24] MEDS: FAMOTIDINE 20 MG (PEPCID) TABLET PO SCH (11:22)
[2018-09-24 12:10] VITALS: BP 117/75
== END 2018-09-24 12:10 | disposition home or self-care (01) | DRG 455 ==
LOC: 4TH 09:48 → SURG 09:49 → EDSTATUS 10:15 → 4TH 09-22 07:00
PROVIDERS: ADMIT Orthopaedic Surgery Orthopaedic Surgery of the Spine; ATTEND Orthopaedic Surgery Orthopaedic Surgery of the Spine
PROC: 0SG0071 Fusion of Lumbar Vertebral Joint with Autologous Tissue Substitute, Posterior Approach, Posterior Column, Open Approach (ICD-10-PCS; 2018-09-21)
PROC: 0SB20ZZ Excision of Lumbar Vertebral Disc, Open Approach (ICD-10-PCS; 2018-09-21)
PROC: 00NY0ZZ Release Lumbar Spinal Cord, Open Approach (ICD-10-PCS; 2018-09-21)
PROC: 0SG0070 Fusion of Lumbar Vertebral Joint with Autologous Tissue Substitute, Anterior Approach, Anterior Column, Open Approach (ICD-10-PCS; principal; 2018-09-21 12:14)
DX: M43.16 Spondylolisthesis, lumbar region (principal); M48.061 Spinal stenosis, lumbar region without neurogenic claudication; M54.16 Radiculopathy, lumbar region; F17.210 Nicotine dependence, cigarettes, uncomplicated; K21.9 Gastro-esophageal reflux disease without esophagitis; I95.1 Orthostatic hypotension; K59.03 Drug induced constipation; R33.9 Retention of urine, unspecified; Z23 Encounter for immunization
CPT/HCPCS: 36415; 80053; 80306; 85025; 85027; 86850; 86900; 86901; 87081; 90471; 90686

== ENCOUNTER 2023-07-16 17:54 | Emergency (ER) | payer MEDICARE, MEDICAID ==
[~2023-07-16] VITALS: Ht 172.7 cm; Wt 80.0 kg
[~2023-07-16 17:54] MED LIST changes: +ACHYD1T PO; -HYDR-3820 PO; +LANS15CA PO; -LISI10TA2 PO; +LISI10TA25 PO
[2023-07-16 19:27] VITALS: BP 157/102
[2023-07-16] MEDS ORDERED: PRD50T PO (19:34)
[2023-07-16] MEDS ORDERED: PERM60CR4 TP (19:34)
--- NOTE | 2023-07-16 19:34 | ED Integumentary General ---
General Chief Complaint: Bite-Animal/Human/Insect Stated Complaint: INFECTED WITH OAK MITES AND BED BUGS Source: patient Exam Limitations: no limitations History of Present Illness Date Seen by Provider: Jul 16, 2023 Time Seen by Provider: 19:29 Initial Comments Patient is a 52-year-old male who presents the ED with a diffuse itchy rash. Started 2 months ago. Patient states he is concerned that he has infestation of bedbugs versus oak mites. Reports diffuse red itchy rash. Patient states he has been seen for this rash but denies being treated. States the rash appears to be worsening. Currently still living in the same area. Patient denies applying topical cream. Patient states he use hand hygiene soap without much improvement. Patient [place] fever, chills, nausea, vomiting, diarrhea Allergies and Home Medications Allergies Coded Allergies: tramadol (Verified Allergy, Unknown, ITCHING RASH, 08/20/18) Patient Home Medication List Home Medication List Reviewed: Yes Hydrocodone Bit/Acetaminophen (HYDROcodone/APAP 10/325 TABLET) 1 Each Tablet, 1- 2 EACH PO QID PRN for PAIN-SEVERE Prescribed by: JAY JAY FITCH on 09/24/18 0722 Lansoprazole (Prevacid 24Hr) 15 Mg Capsule.dr, 15 MG PO PRN, (Reported) Entered as Reported by: STEVE CALZADA on 09/21/18 1121 Lisinopril (Lisinopril) 10 Mg Tablet, 10 MG PO DAILY, (Reported) Entered as Reported by: MELVA ADAMS on 09/17/18 0914 Permethrin (Permethrin) 5 % Cream..g., 60 GM TP ONCE Prescribed by: ANANDA LAYTON on 07/16/231933 Prednisone (Prednisone) 50 Mg Tab, 50 MG PO DAILY Prescribed by: ANANDA LAYTON on 07/16/231933 Review of Systems Review of Systems Constitutional: No chills, No diaphoresis EENTM: No ear pain, No blurred vision, No double vision Respiratory: No cough, No dyspnea on exertion Cardiovascular: No chest pain Gastrointestinal: No abdominal pain, No diarrhea, No nausea, No vomiting Genitourinary: No decreased output, No discharge Musculoskeletal: No back pain, No joint pain Skin: change in color, pruritus, rash Past Gijgxqw-Zlbrso-Plxgfw Hx Seasonal Allergies Seasonal Allergies: No Past Medical History Surgeries: No Respiratory: No Cardiac: Yes Neurological: No Genitourinary: No Gastrointestinal: Yes Gastroesophageal Reflux Musculoskeletal: Yes (SPONDYLOSIS) Arthritis, Chronic Back Pain Endocrine: No HEENT: Yes (LEFT EYE LAZY) Cancer: No Psychosocial: No Integumentary: No Blood Disorders: No Family Medical History Diabetes mellitus 19 MOTHER G8 BROTHER G8 SISTER Gastroenteritis Hypertension 19 FATHER 19 MOTHER G8 BROTHER G8 SISTER Kidney disease 19 MOTHER Myocardial infarction 19 FATHER Physical Exam Vital Signs Vital Signs - First Documented 07/16/23 19:27 Temp 36.9 Pulse 100 Resp 16 B/P (MAP) 157/102 (120) Capillary Refill : General Appearance: WD/WN, no apparent distress HEENT: PERRL/EOMI, normal ENT inspection, TMs normal, pharynx normal Neck: non-tender, full range of motion, normal inspection Cardiovascular: regular rate, rhythm, no edema, no gallop, no JVD Respiratory: chest non-tender, lungs clear, normal breath sounds, no respiratory distress, no accessory muscle use Gastrointestinal: normal bowel sounds, non tender, soft, no organomegaly Back: normal inspection, no CVA tenderness Extremities: normal range of motion Neurologic/Psychiatric: skin former II-XII nml as tested, no motor/sensory deficits, alert, normal mood/affect, oriented x 3 Skin: other (diffuse Red erythematous papules.) Progress/Results/Core Measures Results/Orders My Orders Orders - LATOSHA TAI Prednisone Tablet (Deltasone Tablet) (07/16/23 19:45) Diphenhydramine Tablet (Diphenhydramine (07/16/23 19:45) Vital Signs/I&O 07/16/23 19:27 Temp 36.9 Pulse 100 Resp 16 B/P (MAP) 157/102 (120) Departure Communication (PCP) Patient presents ED with a rash. Differential diagnosis, scabies, bedbugs, oak mites, cellulitis. On exam he does have diffuse erythematous papular rash. Rash in certain areas is concerning for scabies. States he has bedbugs at his house. Other etiology would be oak mites. Does not appear to be bacterial in nature. Due to concern for scabies will discharge with permethrin. Discussed instructions on how to use. Patient received a dose of prednisone and Benadryl here for the extreme itching. Will discharge with a few days worth of prednisone as well as Benadryl. Discussed cleaning his entire house. Recommend washing all clothes in hot water for a period of time. Recommend drying your close at a high temperature. Remove all bedding. Discussed if any worsening rash to return back to ED. Follow-up with PCP in 2 to 3 days for reevaluation. Impression Primary Impression: Rash Disposition: 01 HOME, SELF-CARE Condition: Stable Departure-Patient Inst. Decision time for Depature: 19:32 Referrals: [facility]/Gee GUERRERO DO (PCP) Primary Care Physician Patient Instructions: Skin Rash Scripts Permethrin (Permethrin) 5 % Cream..g. 60 GM TP ONCE, #1 EA Prov: LATOSHA TAI 07/16/23 Prednisone (Prednisone) 50 Mg Tab 50 MG PO DAILY for 4 Days, #4 TAB Prov: LATOSHA TAI 07/16/23 LATOSHA TAI Jul 16, 2023 19:34
[2023-07-16] MEDS ORDERED: predniSONE 20 MG TABLET PO ONE (19:45)
[2023-07-16] MEDS ORDERED: diphenhydrAMINE 25 MG TABLET PO ONE (19:45)
== END 2023-07-16 19:45 | disposition home or self-care (01) ==
LOC: EDUNIT# 17:54 → ER 17:57
DX: R21 Rash and other nonspecific skin eruption (principal)
CPT/HCPCS: 99283